=== PATIENT | female | born 1990 | race Caucasian/White ===

== ENCOUNTER → 2016-09-22 | Outpatient (CLI) | payer BC, OTHER ==
[~2016-09-22] MED LIST: DULO-24 PO; ETON1IMP2; IMT50 PO; LAMO200T38 PO; LISD40CA PO; PRENTAB26 PO; SYN125 PO
== END | disposition home or self-care (01) ==
LOC: C.RDSM 14:40
PROVIDERS: ATTEND Orthopaedic Surgery Sports Medicine
DX: M79.644 Pain in right finger(s) (principal); M79.645 Pain in left finger(s)

== ENCOUNTER 2020-12-02 11:59 | Inpatient (IN) ==
[2020-12-02 13:08] LABS: Appearance Urine Clear (Clear); Bacteria Urine Automated Negative (Negative); Bilirubin Urine Negative (Negative); Blood Urine Trace (Negative); Color Urine Yellow; Epithelial Cell Urine Auto >30 /lpf (0-5); Glucose Urine UA Negative (Negative); Ketones Urine Trace (Negative); Leukocyte Esterase Urine Trace (Negative); Nitrite Urine Negative (Negative); Protein Urine Negative (Negative); RBC Urine Automated 0-4 /hpf (0-4); Specific Gravity Urine 1.009 (1.000-1.030); Urobilinogen Urine Negative (Negative)
--- NOTE | 2020-12-02 13:08 | Emergency Department Note ---
Impression & Plan Suicidal thoughts, Mood disorder, High serum chloride, Marijuana use ED Provider Note NAME: KP CARRERA AGE: 29 SEX: F : 1990 ARRIVES VIA: Walk-In INFORMANT: Patient ED PROVIDER(S): Vishal Galarza DO CHIEF COMPLAINT: Depression HPI: Patient is a 29-year-old female with a past medical history of bipolar disorder and asthma who presents the ER for worsening depression. She has been crying fairly consistently. She has not been eating or drinking. She admits to impulses of wanting to kill her self. She has thoughts of wanting to crash her car off the road or slam her head against a desk. She does not feel like she can keep her self safe anymore. She has been trying to do this for the past several weeks. Patient denies any headache or change in vision. No chest pain or shortness of breath. No focal belly pain. No nausea vomiting or diarrhea. ROS: See above HPI for pertinent positives & negatives. A total of 10 systems reviewed and were otherwise negative. PAST MEDICAL HISTORY:See Below PAST SURGICAL HISTORY:See Below FAMILY HISTORY:See Below SOCIAL HISTORY:See Below HOME MEDICATIONS:See Below ALLERGIES:See Below VITALS:See Below PHYSICAL EXAMINATION: GENERAL: Sitting up in bed, alert, well appearing, well nourished, no distress, non-toxic EYE EXAM: normal conjunctiva. OROPHARYNX: no exudate, no erythema, lips, buccal mucosa, and tongue normal and mucous membranes are moist NECK: supple, no nuchal rigidity, no adenopathy, non-tender LUNGS: Clear to auscultation. Normal chest wall mechanics HEART: no murmurs, S1 normal and S2 normal ABDOMEN: abdomen soft, non-tender, normo-active bowel sounds, no masses, no rebound or guarding. BACK: Back is symmetrical on inspection and there is no deformity, no midline tenderness, no CVA tenderness. SKIN: no rashes and no bruising UPPER EXTREMITIES: upper extremities are grossly normal. LOWER EXTREMITIES: No pitting edema. NEURO EXAM: Normal sensorium, cranial nerves II-XII grossly intact, normal speech, no gross weakness of arms, no gross weakness of legs. MEDICAL DECISION MAKING: Patient is a 29-year-old female with a past medical history of asthma, hypothyroidism and bipolar who presents the ER brought in by canvas goods maker for impulsive suicidal thoughts. She feels uncomfortable staying at home and feels as though she cannot control these impulse and intrusive thoughts which include crashing her car. Patient would like to come in. Her canvas goods maker agrees that she is unsafe to be at home. Labs were obtained and showed no significant leukocytosis or anemia. BMP with slightly elevated chloride. LFTs bilirubin and TSH was unremarkable. UA was contaminated with multiple epithelial cells. Will not treat. was negative. Tox negative with the exception of marijuana. Covid was negative. Bed search was started. Patient was signed out to Dr. Tom to continue the bed search. Observation Status: Indication: Depression and SI Patient with no pertinent family history, was seen first at 1230 hrs and was necessary in order to determine medical stability and avoid unnecessary admission. Upon reevaluation, 6 hours of observation revealed that the patient should be signed out to Dr. Tom. Disposition date and time 12/02/2020 at 1800 Pt was signed out to Dr. Tom. Triage Nursing notes reviewed. Limited review of prior medical records performed Vital Signs: reviewed and remarkable for no significant abnormalities Differential diagnosis: Mood disorder, infection, hypoglycemia, electrolyte abnormalities, cardiac sources, intracerebral event, toxicologic, trauma, neurologic, as well as other pathologies. ER treatment provided: See below Diagnostics interpreted by me: ECG: none Laboratory studies: As stated above and show below. Imaging studies: See below Consultation(s): none Procedures: none Critical Care: None Past Med/Surg History Medical History (Updated 12/02/20 @ 18:05 by Vishal Galarza DO) Asthma Bipolar 1 disorder Hx of migraines Hypothyroid Surgical History Hx of breast reduction, elective Hx of wisdom tooth extraction Family History Other No significant family history Social History Smoking Status: Never smoker Hx Alcohol Use: Yes Hx Substance Use: No marital status: Single Current Living Situation: Alone current occupational status: unemployed Feels Safe at Home: Yes Allergies Allergies Allergy/AdvReac Type Severity Reaction Status Date / Time No Known Allergies Allergy Verified 12/02/20 16:02 Home Meds Home Medications Medication Instructions Recorded Confirmed dextroamphetamine-amphetamine 5 mg PO DAILY PRN 07/15/18 12/02/20 [Adderall] fludrocortisone 0.1 mg tablet 0.1 mg PO DAILY 04/12/19 12/02/20 levothyroxine 75 mcg capsule 75 mcg PO DAILY 04/12/19 12/02/20 tranexamic acid 600 mg PO UD 12/02/20 12/02/20 Results & Data (ED) Vital Signs Vital Signs - 24 hr 12/02/20 12:03 12/02/20 16:06 Temperature 36.6 C Temperature Source Temporal Artery Scan Pulse Rate 77 Pulse Rate [Left Finger] 66 Respiratory Rate 18 14 Respiratory Effort / Characteristics Non-Labored Respiratory Depth Normal Normal Blood Pressure 121/86 Blood Pressure [Right Arm] 122/80 Blood Pressure Mean 97 Blood Pressure Mean [Right Arm] 94 Blood Pressure Position [Right Arm] Sitting Pulse Oximetry 100 99 Oxygen Delivery Method Room Air Room Air Sepsis Recent Fever Within 48 Hours No Sepsis New/Unexplained Change in Mental Status No Sepsis Action Taken by Nursing No Action Required Laboratory Data Result diagrams: 12/02/20 13:03 12/02/20 13:03 Lab Results 12/02/20 12/02/20 12/02/20 Range/Units 12:48 12:48 12:48 WBC (4.8-10.8) K/uL RBC (4.2-5.4) M/uL Hgb (12.0-16.0) g/dL Hct (37-47) % MCV (80-100) fL MCH (25-34) pg MCHC (32-36) g/dL RDW Std Deviation (36.4-46.3) fL RDW Coeff of Ashley (11.5-14.5) % Plt Count (130-400) K/uL MPV (7.4-10.4) fL Immature Gran % (Auto) % Neut % (Auto) % Lymph % (Auto) % Bacon % (Auto) % Eos % (Auto) % Baso % (Auto) % Neut # (Auto) (1.4-6.5) K/uL Lymph # (Auto) (1.2-3.4) K/uL Bacon # (Auto) (0.11-0.59) K/uL Eos # (Auto) (0-0.5) K/uL Baso # (Auto) (0-0.2) K/uL Immature Gran # (Auto) (0.00-0.02) K/uL Sodium (136-145) mmol/L Potassium (3.5-5.1) mmol/L Chloride (98-107) mmol/L Carbon Dioxide (21-32) mmol/L Anion Gap (3-11) BUN (7-18) mg/dl Creatinine (0.6-1.2) mg/dl Est Cr Clr Drug Dosing ml/min Est GFR ( Amer) ml/min Est GFR (Non-Af Amer) ml/min BUN/Creatinine Ratio (10-20) Glucose (70-99) mg/dl Calcium (8.5-10.1) mg/dl Total Bilirubin (0.2-1) mg/dl AST (15-37) U/L ALT (12-78) U/L Alkaline Phosphatase (45-117) U/L Total Protein (6.4-8.2) gm/dl Albumin (3.4-5.0) gm/dl Globulin (2.5-4.0) gm/dl Albumin/Globulin Ratio (0.9-2) TSH (0.300-4.500) uIu/ml Urine Color Yellow Urine Appearance Clear (Clear) Urine pH 6.0 (4.5-7.5) Ur Specific Mobile 1.009 (1.000-1.030) Urine Protein Negative (Negative) Urine Glucose (UA) Negative (Negative) Urine Ketones Trace H (Negative) Urine Blood Trace H (Negative) Urine Nitrite Negative (Negative) Urine Bilirubin Negative (Negative) Urine Urobilinogen Negative (Negative) Ur Leukocyte Esterase Trace H (Negative) Urine WBC (Auto) 10-30 H (0-5) /hpf Urine RBC (Auto) 0-4 (0-4) /hpf U Hyaline Cast (Auto) 1-5 (0-5) /lpf U Epithel Cells (Auto) >30 H (0-5) /lpf Urine Bacteria (Auto) Negative (Negative) POC Ur Test NEG (NEG) Salicylates (2.8-20) mg/dl Urine Opiates Screen Neg (Neg) Ur Methadone, Qual Neg (Neg) Acetaminophen (10-30) ug/ml Urine Barbiturates Neg (Neg) Ur Phencyclidine (PCP) Neg (Neg) U Amphetamin/Meth Scrn Neg (Neg) MDMA (Ecstasy) Screen Neg (Neg) U Benzodiazepines Scrn Neg (Neg) Ur Cocaine Metabolite Neg (Neg) U Marijuana (THC) Screen Pos H (Neg) Ethyl Alcohol mg/dL (0-3) mg/dl COVID-19 Eval Order SARS-CoV-2 (PCR) (Negative) 12/02/20 12/02/20 12/02/20 Range/Units 13:03 13:03 13:03 WBC 5.98 (4.8-10.8) K/uL RBC 4.96 (4.2-5.4) M/uL Hgb 13.1 (12.0-16.0) g/dL Hct 40.3 (37-47) % MCV 81.3 (80-100) fL MCH 26.4 (25-34) pg MCHC 32.5 (32-36) g/dL RDW Std Deviation 46.6 H (36.4-46.3) fL RDW Coeff of Ashley 15.8 H (11.5-14.5) % Plt Count 180 (130-400) K/uL MPV 10.6 H (7.4-10.4) fL Immature Gran % (Auto) 0.2 % Neut % (Auto) 72.4 % Lymph % (Auto) 19.9 % Bacon % (Auto) 6.4 % Eos % (Auto) 0.8 % Baso % (Auto) 0.3 % Neut # (Auto) 4.33 (1.4-6.5) K/uL Lymph # (Auto) 1.19 L (1.2-3.4) K/uL Bacon # (Auto) 0.38 (0.11-0.59) K/uL Eos # (Auto) 0.05 (0-0.5) K/uL Baso # (Auto) 0.02 (0-0.2) K/uL Immature Gran # (Auto) 0.01 (0.00-0.02) K/uL Sodium 142 (136-145) mmol/L Potassium 4.0 (3.5-5.1) mmol/L Chloride 112 H (98-107) mmol/L Carbon Dioxide 23 (21-32) mmol/L Anion Gap 7.0 (3-11) BUN 11 (7-18) mg/dl Creatinine 0.61 (0.6-1.2) mg/dl Est Cr Clr Drug Dosing 113.5 ml/min Est GFR ( Amer) 143.0 ml/min Est GFR (Non-Af Amer) 123.4 ml/min BUN/Creatinine Ratio 18.7 (10-20) Glucose 86 (70-99) mg/dl Calcium 9.9 (8.5-10.1) mg/dl Total Bilirubin 0.4 (0.2-1) mg/dl AST 17 (15-37) U/L ALT 20 (12-78) U/L Alkaline Phosphatase 44 L (45-117) U/L Total Protein 7.1 (6.4-8.2) gm/dl Albumin 4.1 (3.4-5.0) gm/dl Globulin 3.0 (2.5-4.0) gm/dl Albumin/Globulin Ratio 1.4 (0.9-2) TSH 1.840 (0.300-4.500) uIu/ml Urine Color Urine Appearance (Clear) Urine pH (4.5-7.5) Ur Specific Mobile (1.000-1.030) Urine Protein (Negative) Urine Glucose (UA) (Negative) Urine Ketones (Negative) Urine Blood (Negative) Urine Nitrite (Negative) Urine Bilirubin (Negative) Urine Urobilinogen (Negative) Ur Leukocyte Esterase (Negative) Urine WBC (Auto) (0-5) /hpf Urine RBC (Auto) (0-4) /hpf U Hyaline Cast (Auto) (0-5) /lpf U Epithel Cells (Auto) (0-5) /lpf Urine Bacteria (Auto) (Negative) POC Ur Test (NEG) Salicylates < 1.7 L (2.8-20) mg/dl Urine Opiates Screen (Neg) Ur Methadone, Qual (Neg) Acetaminophen < 2 L (10-30) ug/ml Urine Barbiturates (Neg) Ur Phencyclidine (PCP) (Neg) U Amphetamin/Meth Scrn (Neg) MDMA (Ecstasy) Screen (Neg) U Benzodiazepines Scrn (Neg) Ur Cocaine Metabolite (Neg) U Marijuana (THC) Screen (Neg) Ethyl Alcohol mg/dL (0-3) mg/dl COVID-19 Eval Order SARS-CoV-2 (PCR) (Negative) 12/02/20 12/02/20 12/02/20 Range/Units 13:03 13:46 13:46 WBC (4.8-10.8) K/uL RBC (4.2-5.4) M/uL Hgb (12.0-16.0) g/dL Hct (37-47) % MCV (80-100) fL MCH (25-34) pg MCHC (32-36) g/dL RDW Std Deviation (36.4-46.3) fL RDW Coeff of Ashley (11.5-14.5) % Plt Count (130-400) K/uL MPV (7.4-10.4) fL Immature Gran % (Auto) % Neut % (Auto) % Lymph % (Auto) % Bacon % (Auto) % Eos % (Auto) % Baso % (Auto) % Neut # (Auto) (1.4-6.5) K/uL Lymph # (Auto) (1.2-3.4) K/uL Bacon # (Auto) (0.11-0.59) K/uL Eos # (Auto) (0-0.5) K/uL Baso # (Auto) (0-0.2) K/uL Immature Gran # (Auto) (0.00-0.02) K/uL Sodium (136-145) mmol/L Potassium (3.5-5.1) mmol/L Chloride (98-107) mmol/L Carbon Dioxide (21-32) mmol/L Anion Gap (3-11) BUN (7-18) mg/dl Creatinine (0.6-1.2) mg/dl Est Cr Clr Drug Dosing ml/min Est GFR ( Amer) ml/min Est GFR (Non-Af Amer) ml/min BUN/Creatinine Ratio (10-20) Glucose (70-99) mg/dl Calcium (8.5-10.1) mg/dl Total Bilirubin (0.2-1) mg/dl AST (15-37) U/L ALT (12-78) U/L Alkaline Phosphatase (45-117) U/L Total Protein (6.4-8.2) gm/dl Albumin (3.4-5.0) gm/dl Globulin (2.5-4.0) gm/dl Albumin/Globulin Ratio (0.9-2) TSH (0.300-4.500) uIu/ml Urine Color Urine Appearance (Clear) Urine pH (4.5-7.5) Ur Specific Mobile (1.000-1.030) Urine Protein (Negative) Urine Glucose (UA) (Negative) Urine Ketones (Negative) Urine Blood (Negative) Urine Nitrite (Negative) Urine Bilirubin (Negative) Urine Urobilinogen (Negative) Ur Leukocyte Esterase (Negative) Urine WBC (Auto) (0-5) /hpf Urine RBC (Auto) (0-4) /hpf U Hyaline Cast (Auto) (0-5) /lpf U Epithel Cells (Auto) (0-5) /lpf Urine Bacteria (Auto) (Negative) POC Ur Test (NEG) Salicylates (2.8-20) mg/dl Urine Opiates Screen (Neg) Ur Methadone, Qual (Neg) Acetaminophen (10-30) ug/ml Urine Barbiturates (Neg) Ur Phencyclidine (PCP) (Neg) U Amphetamin/Meth Scrn (Neg) MDMA (Ecstasy) Screen (Neg) U Benzodiazepines Scrn (Neg) Ur Cocaine Metabolite (Neg) U Marijuana (THC) Screen (Neg) Ethyl Alcohol mg/dL < 3.0 (0-3) mg/dl COVID-19 Eval Order Covid19 at [facility] SARS-CoV-2 (PCR) NEGATIVE (Negative) 12/02/20 Range/Units 13:49 WBC (4.8-10.8) K/uL RBC (4.2-5.4) M/uL Hgb (12.0-16.0) g/dL Hct (37-47) % MCV (80-100) fL MCH (25-34) pg MCHC (32-36) g/dL RDW Std Deviation (36.4-46.3) fL RDW Coeff of Ashley (11.5-14.5) % Plt Count (130-400) K/uL MPV (7.4-10.4) fL Immature Gran % (Auto) % Neut % (Auto) % Lymph % (Auto) % Bacon % (Auto) % Eos % (Auto) % Baso % (Auto) % Neut # (Auto) (1.4-6.5) K/uL Lymph # (Auto) (1.2-3.4) K/uL Bacon # (Auto) (0.11-0.59) K/uL Eos # (Auto) (0-0.5) K/uL Baso # (Auto) (0-0.2) K/uL Immature Gran # (Auto) (0.00-0.02) K/uL Sodium (136-145) mmol/L Potassium (3.5-5.1) mmol/L Chloride (98-107) mmol/L Carbon Dioxide (21-32) mmol/L Anion Gap (3-11) BUN (7-18) mg/dl Creatinine (0.6-1.2) mg/dl Est Cr Clr Drug Dosing ml/min Est GFR ( Amer) ml/min Est GFR (Non-Af Amer) ml/min BUN/Creatinine Ratio (10-20) Glucose (70-99) mg/dl Calcium (8.5-10.1) mg/dl Total Bilirubin (0.2-1) mg/dl AST (15-37) U/L ALT (12-78) U/L Alkaline Phosphatase (45-117) U/L Total Protein (6.4-8.2) gm/dl Albumin (3.4-5.0) gm/dl Globulin (2.5-4.0) gm/dl Albumin/Globulin Ratio (0.9-2) TSH (0.300-4.500) uIu/ml Urine Color Urine Appearance (Clear) Urine pH (4.5-7.5) Ur Specific Mobile (1.000-1.030) Urine Protein (Negative) Urine Glucose (UA) (Negative) Urine Ketones (Negative) Urine Blood (Negative) Urine Nitrite (Negative) Urine Bilirubin (Negative) Urine Urobilinogen (Negative) Ur Leukocyte Esterase (Negative) Urine WBC (Auto) (0-5) /hpf Urine RBC (Auto) (0-4) /hpf U Hyaline Cast (Auto) (0-5) /lpf U Epithel Cells (Auto) (0-5) /lpf Urine Bacteria (Auto) (Negative) POC Ur Test (NEG) Salicylates (2.8-20) mg/dl Urine Opiates Screen (Neg) Ur Methadone, Qual (Neg) Acetaminophen (10-30) ug/ml Urine Barbiturates (Neg) Ur Phencyclidine (PCP) (Neg) U Amphetamin/Meth Scrn (Neg) MDMA (Ecstasy) Screen (Neg) U Benzodiazepines Scrn (Neg) Ur Cocaine Metabolite (Neg) U Marijuana (THC) Screen (Neg) Ethyl Alcohol mg/dL (0-3) mg/dl COVID-19 Eval Order Not Reportable SARS-CoV-2 (PCR) (Negative) Discharge Plan Visit Data Chief Complaint: Mental Health Evaluation Stated Complaint: MENTAL HEALTH EVAL ED Provider: Nazario Tom Discharge Problem: Suicidal thoughts, Mood disorder, High serum chloride, Marijuana use Forms Stand Alone Forms: My [facility], Suicide Prevention Resources Prescriptions Prescriptions: No Action levothyroxine 75 mcg capsule 75 mcg PO DAILY RF: 0 fludrocortisone 0.1 mg tablet 0.1 mg PO DAILY RF: 0 dextroamphetamine-amphetamine [Adderall] 5 mg Tablet 5 mg PO DAILY PRN (Reason: focus) RF: 0 tranexamic acid 650 mg tablet 600 mg PO UD RF: 0
[2020-12-02 13:14] LABS: Basophils # (auto) 0.02 K/uL (0-0.2); Basophils % (auto) 0.3 %; Eosinophils # (auto) 0.05 K/uL (0-0.5); Eosinophils % (auto) 0.8 %; Hematocrit (blood only) 40.3 % (37-47); Hemoglobin 13.1 g/dL (12.0-16.0); Immature Granulocytes # (auto) 0.01 K/uL (0.00-0.02); Immature Granulocytes % (auto) 0.2 %; Lymphocytes # (auto) 1.19 K/uL (1.2-3.4); Lymphocytes % (auto) 19.9 %; Mean Corpuscular Hemoglobin 26.4 pg (25-34); Mean Corpuscular Hgb Conc 32.5 g/dL (32-36); Mean Corpuscular Volume 81.3 fL (80-100); Mean Platelet Volume 10.6 fL (7.4-10.4); Monocytes # (auto) 0.38 K/uL (0.11-0.59); Monocytes % (auto) 6.4 %; Neutrophils # (auto) 4.33 K/uL (1.4-6.5); Neutrophils % (auto) 72.4 %; Platelet Count 180 K/uL (130-400); RDW Coefficient of Variation 15.8 % (11.5-14.5); RDW Standard Deviation 46.6 fL (36.4-46.3); Red Blood Count 4.96 M/uL (4.2-5.4); White Blood Count 5.98 K/uL (4.8-10.8)
[2020-12-02 13:34] LABS: Amphetamines+Metham, Urine Neg (Neg); Barbiturates, Urine Neg (Neg); Benzodiazepine, Urine Neg (Neg); Cocaine, Urine Neg (Neg); MDMA (Ecstacy), Urine Neg (Neg); Methadone, Urine Neg (Neg); Opiate, Urine Neg (Neg); Phencyclidine, Urine Neg (Neg)
[2020-12-02 13:37] LABS: Albumin Level 4.1 gm/dl (3.4-5.0); BUN Creatinine Ratio 18.7 (10-20); Calcium 9.9 mg/dl (8.5-10.1); Creatinine Clr Calc Pharmacy 113.5 ml/min; Est GFR (Non-African American) 123.4 ml/min
[2020-12-02 13:48] LABS: Albumin Globulin Ratio 1.4 (0.9-2); Bilirubin,Total 0.4 mg/dl (0.2-1); Thyroid Stimulating Hormone 1.84 uIu/ml (0.300-4.500); Total Protein 7.1 gm/dl (6.4-8.2)
[2020-12-02 13:52] LABS: Acetaminophen < 2 ug/ml (10-30)
[2020-12-02 13:53] LABS: Salicylate < 1.7 mg/dl (2.8-20)
--- NOTE | 2020-12-02 18:02 | Emergency Department Note ---
ED Visit Note Patient signed out to me by Dr. Galarza after being medically cleared for bed search for inpatient treatment. History of underlying bipolar reportedly worsening now with impulsive thoughts to want to harm her self or wreck her car. Bed search is in progress. Patient is voluntary for inpatient care. Patient rested comfortably here. She did take her evening supplements and her daily prescription medicines were ordered. Bed search was suspended due to lack of bed this evening. Signed out to Dr. Yuan pending bed search restart in the morning. .
[2020-12-02] MEDS ORDERED: DEXTROAMPHETAMINE AMPHETAMINE PO PRN (23:22)
--- NOTE | 2020-12-03 01:34 | Emergency Department Note ---
ED Visit Note ED Physician Sign Out Note: 29 yr old female with history of bipolar disorder who arrived earlier with suicidal ideation. Here on [address] voluntary but no beds available at this time and bed search suspended. Signed out to me by Dr Tom pending placement. Patient sleeping in no distress on evaluation. No issues throughout the night. Signed out to Dr Damon pending further attempts at placement. Marco Yuan MD
--- NOTE | 2020-12-03 07:19 | Emergency Department Note ---
ED Visit Note I did receive signout from Dr. Yuan. The patient is currently a voluntary 201 due to concern for suicidal ideation. Patient is medically cleared. Patient was accepted to [facility] [address] and subsequently admitted. .
[2020-12-03] MEDS ORDERED: FLUDROCORTISONE ACETATE 0.1 MG TAB PO SCH (09:00)
[2020-12-03] MEDS ORDERED: LEVOTHYROXINE SODIUM 75 MCG TABLET PO SCH (09:30)
[2020-12-03] MEDS ORDERED: SODIUM CHLORIDE 0.65% NA SOLN 45 ML (OCEAN) PRN (09:51)
[2020-12-03] MEDS ORDERED: hydrOXYzine HCl 25 MG TAB PO PRN (09:51)
[2020-12-03] MEDS ORDERED: ACETAMINOPHEN 325 MG TAB PO PRN (09:51)
[2020-12-03] MEDS ORDERED: MAGNESIUM HYDROXIDE SUSP 30 ML UDC PO PRN (09:51)
[2020-12-03] MEDS ORDERED: ALUMINUM/MAGNESIUM SUSP 30 ML UDC PO PRN (09:51)
[2020-12-03] MEDS ORDERED: BISMUTH SUBSALICYLATE LIQD 236 ML PO PRN (09:51)
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
[2020-12-03] MEDS: CHOLECALCIFEROL 1,000 UNITS 25 MCG TAB PO SCH (20:54)
[2020-12-03] MEDS ORDERED: LION S MANE PO SCH (21:00)
[2020-12-03] MEDS ORDERED: TURMERIC TURMERIC EXT PEPPER PO SCH (21:00)
[2020-12-03] MEDS ORDERED: HTP 100 MG PO SCH (21:00)
[2020-12-03] MEDS ORDERED: NON-FORMULARY MEDICATION (Cholecalciferol (Vitamin D3) [Vitamin D3] 25 mcg (1,000 unit) Ta PO SCH (21:00)
[2020-12-03] MEDS ORDERED: CBD PO SCH (21:00)
[2020-12-03] MEDS: hydrOXYzine HCl 25 MG TAB PO PRN (22:07)
[2020-12-04] MEDS: LEVOTHYROXINE SODIUM 75 MCG TABLET PO SCH (07:50)
[2020-12-04] MEDS: ESCITALOPRAM OXALATE 10 MG TAB PO SCH (09:45)
[2020-12-04] MEDS: FLUDROCORTISONE ACETATE 0.1 MG TAB PO SCH (09:46)
[2020-12-04] MEDS: TRANEXAMIC ACID PO SCH ×4 (09:49→22:25)
--- NOTE | 2020-12-04 12:36 | Psychiatric Progress Note ---
Date of Service December 04, 2020 Impression / Recommendations Impression 21-year-old female who presented following episodes of suicidal ideation. (1) Major depressive disorder with current active episode: The patient was admitted to the [facility] ([facility]) on q15 min checks (behavioral with suicide precautions) for safety. The patient will participate in group, recreational, and milieu therapies and will be offered additional individual and family sessions as clinically appropriate. At this time MDD is leading diagnosis. Elastic Yarn Twister spoke extensively with patient about her past symptoms and does not believe bipolar to be accurate at this time. 12/04/2020atient took first dose of Lexapro without incident. We will continue on 10 mg p.o. every morning for now. 12/03/2020 patient will be started on Lexapro 10 mg p.o. every morning (2) Marijuana use: The patient's use history suggests problematic substance use. Brief intervention was offered and accepted. Intervention was greater than 5 min in length and included assessing readiness to quit, advice on how to reduce or abstain, and to set a specific goal for this hospitalization. oyster worker will also assist in anticipating barriers to sobriety and in problem-solving for solutions to those problems while arranging for referral to appropriate treatment. The patient is in precontemplation stage with regards to transtheoretical model of change. The patient is advised to decrease consumption due to depressant effects and risk of interaction with prescription medications. The patient agreed to consider decreasing use and will be provided with recovery materials to continue to educate self on how to cope with their condition without abusing substances. Risk Factors Assessment Do You Have Access To A Gun?: No Protective Factors Assessment Employed: No Interval History Chief Complaint "I am still feeling pretty down". Review of Systems Sleep Information Total Hours of Sleep: 6.5 Meal Information Percent Meal Consumed - Breakfast: 0 Percent Meal Consumed - Lunch: 75 Percent Meal Consumed - Dinner: 75 Subjective Subjective Patient was seen & assessed and interval progress reviewed with treatment team nursing and social work Patient reports feeling low mood. Endorses poor appetite. States her sleep is broken up and she required a sleep aid (hydroxyzine). Patient reports feeling groggy from this. Did attend group this morning and participated appropriately. No side effects reported from Lexapro administration this morning. Physical Exam Psychiatric Orientation: alert and oriented x 3 Apperance: appropriately dressed Eye Contact: + fair eye contact Motor Behavior: no abnormal motor movements Speech: normal rate/rhythm/volume of speech Affect: + depressed affect Mood: + depressed mood and + anxious mood Thought Process: goal directed thought process Thought Content: + preoccupation and + cognitive distortions Suicidal Thoughts: denies suicidal intent; + reports suicidal thoughts and + reports suicidal plan Homicidal Thoughts: denies homicidal thoughts Hallucinations: no auditory hallucinations Cognition: recent memory grossly intact Estimated Intelligence: average estimated intelligence Insight: + fair insight Judgement: + fair judgement Vital Signs (Past 24 Hours) Last Vital Signs Temp 36.6 C 12/04/20 06:00 Pulse 84 12/04/20 06:43 Resp 16 12/04/20 06:00 BP 95/67 L 12/04/20 06:43 Pulse Ox 99 12/03/20 06:23 Results & Data ([facility]) Current Inpatient Medications Current Inpatient Medications: Current Inpatient Medications Acetaminophen (Acetaminophen 325 Mg Tab) 650 mg PO Q4H PRN PRN Reason: Headache or Minor Fever Stop: 01/02/21 09:50 Al Hydrox/Mg Hydrox/Simethicone (Aluminum/Magnesium Susp 30 Ml Udc) 30 ml PO Q4H PRN PRN Reason: GI Upset Stop: 01/02/21 09:50 Bismuth Subsalicylate (Bismuth Subsalicylate Liqd 236 Ml) 15 ml PO PRN PRN PRN Reason: Loose Stool Stop: 01/02/21 09:50 Escitalopram Oxalate (Escitalopram Oxalate 10 Mg Tab) 10 mg PO QAM GABBIE Stop: 01/03/21 08:59 Last Admin: 12/04/20 09:45 Dose: 10 mg Documented by: Fludrocortisone Acetate (Fludrocortisone Acetate 0.1 Mg Tab) 0.1 mg PO QAM GABBIE Stop: 01/03/21 08:59 Last Admin: 12/04/20 09:46 Dose: 0.1 mg Documented by: Hydroxyzine HCl (Hydroxyzine Hcl 25 Mg Tab) 50 mg PO HSZ PRN PRN Reason: Insomnia Stop: 01/02/21 09:50 Last Admin: 12/03/20 22:07 Dose: 50 mg Documented by: Hydroxyzine HCl (Hydroxyzine Hcl 25 Mg Tab) 25 mg PO Q4H PRN PRN Reason: Anxiety Stop: 01/02/21 09:50 Levothyroxine Sodium (Levothyroxine Sodium 75 Mcg Tablet) 75 mcg PO DAILYBB GABBEI Stop: 01/03/21 07:59 Last Admin: 12/04/20 07:50 Dose: 75 mcg Documented by: Magnesium Hydroxide (Magnesium Hydroxide Susp 30 Ml Udc) 30 ml PO DAILY PRN PRN Reason: Constipation Stop: 01/02/21 09:50 Tranexamic Acid - (Patient's Own Med) 2 ea PO TID GABBIE Stop: 01/03/21 08:59 Last Admin: 12/04/20 09:49 Dose: Not Given Documented by: Sodium Chloride (Sodium Chloride 0.65% Na Soln 45 Ml ([place])) 1 - 2 sprays NA PRN PRN PRN Reason: Nasal Dryness/Congestion Stop: 01/02/21 09:50 Vitamin D (Cholecalciferol 1,000 Units 25 Mcg Tab) 1,000 units PO HS GABBIE Stop: 01/02/21 21:59 Last Admin: 12/03/20 20:54 Dose: 1,000 units Documented by: Mental Health & Subst Abuse Tx Psychiatrist Name of Psychiatrist: Luan Chapin Psychiatrist's Psychiatric Appointment Comment: [phone] [place] [address] Therapist Name of Therapist: Kamron Campa Therapist's Therapy Appointment Comment: [phone] [facility], [place] [address] Fringe Weaver Name of Fringe Weaver: DISHA Hernandez Phone Number for Fringe Weaver: [phone] Case Management Appointment Comment: [address] [place] [facility] [place] [address] Post Discharge Appointments Primary Care Physician Name Of Family Doctor: Lavell Singer Primary Care Provider Appointment Comment: [place] [address] Contact Information Discharge Discharge Address: [address] [place] [address]
[2020-12-04] MEDS: CHOLECALCIFEROL 1,000 UNITS 25 MCG TAB PO SCH (21:14)
[2020-12-04] MEDS: hydrOXYzine HCl 25 MG TAB PO PRN (21:20)
[2020-12-05 07:07] LABS: Marijuana Quant, GCMS Urine 117 ng/mL (<5)
[2020-12-05] MEDS: LEVOTHYROXINE SODIUM 75 MCG TABLET PO SCH (08:09)
[2020-12-05] MEDS: TRANEXAMIC ACID PO SCH ×3 (08:33→21:01)
[2020-12-05] MEDS: ESCITALOPRAM OXALATE 10 MG TAB PO SCH (08:34)
[2020-12-05] MEDS: FLUDROCORTISONE ACETATE 0.1 MG TAB PO SCH (08:34)
--- NOTE | 2020-12-05 14:40 | Psychiatric Progress Note ---
Date of Service December 05, 2020 Impression / Recommendations Impression 21-year-old female who presented following episodes of suicidal ideation. (1) Major depressive disorder with current active episode: The patient was admitted to the [facility] ([facility]) on q15 min checks (behavioral with suicide precautions) for safety. The patient will participate in group, recreational, and milieu therapies and will be offered additional individual and family sessions as clinically appropriate. At this time MDD is leading diagnosis. Coal Conveyor Operator spoke extensively with patient about her past symptoms and does not believe bipolar to be accurate at this time. 12/05/2020-- will increase dose of Lexapro 20mg 12/04/2020atient took first dose of Lexapro without incident. We will continue on 10 mg p.o. every morning for now. 12/03/2020 patient will be started on Lexapro 10 mg p.o. every morning (2) Marijuana use: The patient's use history suggests problematic substance use. Brief int ervention was offered and accepted. Intervention was greater than 5 min in length and included assessing readiness to quit, advice on how to reduce or abstain, and to set a specific goal for this hospitalization. soaking tank worker will also assist in anticipating barriers to sobriety and in problem-solving for solutions to those problems while arranging for referral to appropriate treatment. The patient is in precontemplation stage with regards to transtheoretical model of change. The patient is advised to decrease consumption due to depressant effects and risk of interaction with prescription medications. The patient agreed to consider decreasing use and will be provided with recovery materials to continue to educate self on how to cope with their condition without abusing substances. Risk Factors Assessment Do You Have Access To A Gun?: No Protective Factors Assessment Employed: No Interval History Chief Complaint "I'm feeling fine, thank you". Review of Systems Sleep Information Total Hours of Sleep: 6.5 Meal Information Percent Meal Consumed - Breakfast: 75 Percent Meal Consumed - Lunch: 0 Percent Meal Consumed - Dinner: 80 Subjective Subjective Patient was seen & assessed and interval progress reviewed with treatment team nursing and social work Patient reports decent sleep last night with use of hydroxyzine. Acknowledges being somewhat drowsy today. Denies any other adverse effects of the medications. Calm and pleasant on evaluation, interacting appropriately with peers. attending most groups. Regarding her mood, patient states that she is improving. Denies any suicidal thoughts today but states they are fleeting. No manic symptoms observed or reported. Physical Exam Psychiatric Orientation: alert and oriented x 3 Apperance: appropriately dressed Eye Contact: + fair eye contact Motor Behavior: no abnormal motor movements Speech: normal rate/rhythm/volume of speech Affect: + depressed affect Mood: + depressed mood and + anxious mood Thought Process: goal directed thought process Thought Content: + preoccupation and + cognitive distortions Suicidal Thoughts: denies suicidal intent; + reports suicidal thoughts and + reports suicidal plan Homicidal Thoughts: denies homicidal thoughts Hallucinations: no auditory hallucinations Cognition: recent memory grossly intact Estimated Intelligence: average estimated intelligence Insight: + fair insight Judgement: + fair judgement Vital Signs (Past 24 Hours) Last Vital Signs Temp 36.5 C 12/05/20 06:00 Pulse 90 12/05/20 06:28 Resp 16 12/05/20 06:00 BP 108/75 12/05/20 06:28 Pulse Ox 99 12/03/20 06:23 Results & Data ([facility] [[email or web address] Laboratory Results Laboratory Results - last 24 hr 12/02/20 12:48 U Marijuana THC Carboxy 117 H Drug Screen Comment SEE NOTE Current Inpatient Medications Current Inpatient Medications: Current Inpatient Medications Acetaminophen (Acetaminophen 325 Mg Tab) 650 mg PO Q4H PRN PRN Reason: Headache or Minor Fever Stop: 01/02/21 09:50 Al Hydrox/Mg Hydrox/Simethicone (Aluminum/Magnesium Susp 30 Ml Udc) 30 ml PO Q4H PRN PRN Reason: GI Upset Stop: 01/02/21 09:50 Bismuth Subsalicylate (Bismuth Subsalicylate Liqd 236 Ml) 15 ml PO PRN PRN PRN Reason: Loose Stool Stop: 01/02/21 09:50 Escitalopram Oxalate (Escitalopram Oxalate 20 Mg Tab) 20 mg PO QAM GABBIE Stop: 01/05/21 08:59 Fludrocortisone Acetate (Fludrocortisone Acetate 0.1 Mg Tab) 0.1 mg PO QAM GABBIE Stop: 01/03/21 08:59 Last Admin: 12/05/20 08:34 Dose: 0.1 mg Documented by: Hydroxyzine HCl (Hydroxyzine Hcl 25 Mg Tab) 50 mg PO HSZ PRN PRN Reason: Insomnia Stop: 01/02/21 09:50 Last Admin: 12/04/20 21:20 Dose: 50 mg Documented by: Hydroxyzine HCl (Hydroxyzine Hcl 25 Mg Tab) 25 mg PO Q4H PRN PRN Reason: Anxiety Stop: 01/02/21 09:50 Levothyroxine Sodium (Levothyroxine Sodium 75 Mcg Tablet) 75 mcg PO DAILYBB GABBIE Stop: 01/03/21 07:59 Last Admin: 12/05/20 08:09 Dose: 75 mcg Documented by: Magnesium Hydroxide (Magnesium Hydroxide Susp 30 Ml Udc) 30 ml PO DAILY PRN PRN Reason: Constipation Stop: 01/02/21 09:50 Tranexamic Acid - (Patient's Own Med) 2 ea PO TID GABBIE Stop: 01/03/21 08:59 Last Admin: 12/05/20 08:33 Dose: 2 ea Documented by: Sodium Chloride (Sodium Chloride 0.65% Na Soln 45 Ml ([place])) 1 - 2 sprays NA PRN PRN PRN Reason: Nasal Dryness/Congestion Stop: 01/02/21 09:50 Vitamin D (Cholecalciferol 1,000 Units 25 Mcg Tab) 1,000 units PO HS GABBIE Stop: 01/02/21 21:59 Last Admin: 12/04/20 21:14 Dose: 1,000 units Documented by: Mental Health & Subst Abuse Tx Psychiatrist Name of Psychiatrist: Tish Chapin Psychiatrist's Date of Appointment with Psychiatrist: 12/29/20 Time of Appointment with Psychiatrist: 10:40 a.m. Psychiatric Appointment Comment: [address] [place], [place] [address] Therapist Name of Therapist: Tish Campa Therapist's Date of Therapist Appointment: 12/17/20 Time of Therapist Appointment: 2:00 p.m. Therapy Appointment Comment: [address] [place], [place] [address] Garbage Person Name of Garbage Person: ERASTO Dewey Phone Number for Garbage Person: [phone] Date of Appointment with Garbage Person: 12/09/20 Time of Appointment with Garbage Person: 1:00 p.m. Case Management Appointment Comment: [address] [place] [address] Post Discharge Appointments Primary Care Physician Name Of Family Doctor: Lavell Singer Primary Care Date of Appointment with PCP: 12/12/20 Time of Appointment with PCP: 9:45 a.m. Provider Appointment Comment: [address]red López, [place] [address] Contact Information Discharge Discharge Address: [address] [place] [address], [place] [address]
[2020-12-05] MEDS: CHOLECALCIFEROL 1,000 UNITS 25 MCG TAB PO SCH (21:00)
[2020-12-05] MEDS: hydrOXYzine HCl 25 MG TAB PO PRN (21:55)
[2020-12-06] MEDS: LEVOTHYROXINE SODIUM 75 MCG TABLET PO SCH (07:39)
[2020-12-06] MEDS: TRANEXAMIC ACID PO SCH ×3 (08:20→20:55)
[2020-12-06] MEDS: ESCITALOPRAM OXALATE 20 MG TAB PO SCH (08:20)
[2020-12-06] MEDS: FLUDROCORTISONE ACETATE 0.1 MG TAB PO SCH (08:20)
--- NOTE | 2020-12-06 16:48 | Psychiatric Progress Note ---
Date of Service December 06, 2020 Impression / Recommendations Impression 21-year-old female who presented following episodes of suicidal ideation. (1) Major depressive disorder with current active episode: The patient was admitted to the [facility] ([facility] mental [facility] unit) on q15 min checks (behavioral with suicide precautions) for safety. The patient will participate in group, recreational, and milieu therapies and will be offered additional individual and family sessions as clinically appropriate. At this time MDD is leading diagnosis. Amusement Park Ride Mechanic spoke extensively with patient about her past symptoms and does not believe bipolar to be accurate at this time. 12/06/20- Family meeting went well, denies side effects from increased lexapro - will monitor affect given past suicidal houghts with intent - patient optimistic about discharge tomorrow 12/05/2020-- will increase dose of Lexapro 20mg 12/04/2020atient took first dose of Lexapro without incident. We will continue on 10 mg p.o. every morning for now. 12/03/2020 patient will be started on Lexapro 10 mg p.o. every morning (2) Marijuana use: The patient's use history suggests problematic substance use. Brief intervention was offered and accepted. Intervention was greater than 5 min in length and included assessing readiness to quit, advice on how to reduce or abstain, and to set a specific goal for this hospitalization. duralumin metalworker will also assist in anticipating barriers to sobriety and in problem-solving for solutions to those problems while arranging for referral to appropriate treatment. The patient is in precontemplation stage with regards to transtheoretical model of change. The patient is advised to decrease consumption due to depressant effects and risk of interaction with prescription medications. The patient agreed to consider decreasing use and will be provided with recovery materials to continue to educate self on how to cope with their condition without abusing substances. Risk Factors Assessment Do You Have Access To A Gun?: No Protective Factors Assessment Employed: No Interval History Chief Complaint "[I think taking care of my grandmother was too much for me and overwhelmed me"]". Review of Systems Sleep Information Total Hours of Sleep: 6.5 Meal Information Percent Meal Consumed - Breakfast: 75 Percent Meal Consumed - Lunch: 50 Percent Meal Consumed - Dinner: 100 Subjective Subjective Patient was seen & assessed and interval progress reviewed with nursing and social work. Patient reports being overwhelmed by taking care of her grandmother, grandmother is demented and is 90 years old. She feels a part of her issue was the care providers kept asking her to do more and she "felt capable of doing". She has a meeting with the care providers as well as her mother and her on discharge and there would be a better clear understanding of everybody's role. Patient feels stable at this time denies any thoughts of suicide denies any worsening depression feels optimistic about the future. Physical Exam Psychiatric Orientation: alert and oriented x 3 Apperance: appropriately dressed Eye Contact: + fair eye contact Motor Behavior: no abnormal motor movements Speech: normal rate/rhythm/volume of speech Affect: + depressed affect Mood: + anxious mood; no depressed mood Thought Process: goal directed thought process and linear/logical thought process Thought Content: + preoccupation; no cognitive distortions Suicidal Thoughts: denies suicidal thoughts, denies suicidal plan and denies suicidal intent Homicidal Thoughts: denies homicidal thoughts Hallucinations: no auditory hallucinations, no visual hallucinations and no tactile hallucinations Cognition: recent memory grossly intact Estimated Intelligence: average estimated intelligence Insight: + fair insight Judgement: + fair judgement Improving judhgement Vital Signs (Past 24 Hours) Last Vital Signs Temp 36.5 C 12/06/20 06:32 Pulse 80 12/06/20 06:33 Resp 16 12/06/20 06:32 BP 112/79 12/06/20 06:33 Pulse Ox 99 12/03/20 06:23 Results & Data ([facility] [[email or web address] Current Inpatient Medications Current Inpatient Medications: Current Inpatient Medications Acetaminophen (Acetaminophen 325 Mg Tab) 650 mg PO Q4H PRN PRN Reason: Headache or Minor Fever Stop: 01/02/21 09:50 Al Hydrox/Mg Hydrox/Simethicone (Aluminum/Magnesium Susp 30 Ml Udc) 30 ml PO Q4H PRN PRN Reason: GI Upset Stop: 01/02/21 09:50 Bismuth Subsalicylate (Bismuth Subsalicylate Liqd 236 Ml) 15 ml PO PRN PRN PRN Reason: Loose Stool Stop: 01/02/21 09:50 Escitalopram Oxalate (Escitalopram Oxalate 20 Mg Tab) 20 mg PO QAM GABBIE Stop: 01/05/21 08:59 Last Admin: 12/06/20 08:20 Dose: 20 mg Documented by: Fludrocortisone Acetate (Fludrocortisone Acetate 0.1 Mg Tab) 0.1 mg PO QAM GABBIE Stop: 01/03/21 08:59 Last Admin: 12/06/20 08:20 Dose: 0.1 mg Documented by: Hydroxyzine HCl (Hydroxyzine Hcl 25 Mg Tab) 50 mg PO HSZ PRN PRN Reason: Insomnia Stop: 01/02/21 09:50 Last Admin: 12/05/20 21:55 Dose: 50 mg Documented by: Hydroxyzine HCl (Hydroxyzine Hcl 25 Mg Tab) 25 mg PO Q4H PRN PRN Reason: Anxiety Stop: 01/02/21 09:50 Levothyroxine Sodium (Levothyroxine Sodium 75 Mcg Tablet) 75 mcg PO DAILYBB GABBIE Stop: 01/03/21 07:59 Last Admin: 12/06/20 07:39 Dose: 75 mcg Documented by: Magnesium Hydroxide (Magnesium Hydroxide Susp 30 Ml Udc) 30 ml PO DAILY PRN PRN Reason: Constipation Stop: 01/02/21 09:50 Tranexamic Acid - (Patient's Own Med) 2 ea PO TID GABBIE Stop: 01/03/21 08:59 Last Admin: 12/06/20 14:27 Dose: 2 ea Documented by: Sodium Chloride (Sodium Chloride 0.65% Na Soln 45 Ml ([place])) 1 - 2 sprays NA PRN PRN PRN Reason: Nasal Dryness/Congestion Stop: 01/02/21 09:50 Vitamin D (Cholecalciferol 1,000 Units 25 Mcg Tab) 1,000 units PO HS GABBIE Stop: 01/02/21 21:59 Last Admin: 12/05/20 21:00 Dose: 1,000 units Documented by: Mental Health & Subst Abuse Tx Psychiatrist Name of Psychiatrist: Tish Chapin Psychiatrist's Date of Appointment with Psychiatrist: 12/29/20 Time of Appointment with Psychiatrist: 10:40 a.m. Psychiatric Appointment Comment: [place] [address] Therapist Name of Therapist: Tish Campa Therapist's Date of Therapist Appointment: 12/17/20 Time of Therapist Appointment: 2:00 p.m. Therapy Appointment Comment: [place] [address] Hard Rock Miner Name of Hard Rock Miner: ERASTO Dewey Phone Number for Hard Rock Miner: [phone] Date of Appointment with Hard Rock Miner: 12/09/20 Time of Appointment with Hard Rock Miner: 1:00 p.m. Case Management Appointment Comment: [address] [place] [address] Post Discharge Appointments Primary Care Physician Name Of Family Doctor: Lavell Singer Primary Care Date of Appointment with PCP: 12/12/20 Time of Appointment with PCP: 9:45 a.m. Provider Appointment Comment: [address], [place] [address] Contact Information Discharge Discharge Address: [address] [place] [address]
[2020-12-06] MEDS: CHOLECALCIFEROL 1,000 UNITS 25 MCG TAB PO SCH (20:54)
[2020-12-06] MEDS: hydrOXYzine HCl 25 MG TAB PO PRN (22:19)
[2020-12-07] MEDS: LEVOTHYROXINE SODIUM 75 MCG TABLET PO SCH (07:46)
[2020-12-07] MEDS: TRANEXAMIC ACID PO SCH (08:47)
[2020-12-07] MEDS: FLUDROCORTISONE ACETATE 0.1 MG TAB PO SCH (08:47)
[2020-12-07] MEDS: ESCITALOPRAM OXALATE 20 MG TAB PO SCH (08:47)
--- NOTE | 2020-12-07 10:43 | Discharge Summary ---
Date of Service December 07, 2020 History of Present Illness This is a 21-year-old female who was admitted with suicidal ideation in the context of multiple psychosocial stressors including caring for her 90 year old grandmother please see for details admission H & P Despite her bipolar disorder diagnosis, patient denying any overt manic symptoms recently or in the past. She acknowledged short periods of time where she will get decreased amounts of sleep however these periods of time are less than 2 days in duration prior to admission At the time of admission she denied auditory or visual hallucinations. She denies any paranoia or delusions. Patient does report that she is potentially can undergo testing for autism as she feels that she is on the spectrum. Patient states symptoms of difficulty making eye contact, and social awkwardness although none of this was observed during the evaluation. Patient also identifies as pansexual, and has had relationships with females in the past. States that she feels her gender does not fit her but does not describe herself as transgender. Currently to a man. Physical Exam Psychiatric Orientation: alert and oriented x 3 Apperance: appropriately dressed Eye Contact: + fair eye contact Motor Behavior: no abnormal motor movements Speech: normal rate/rhythm/volume of speech Affect: + depressed affect Mood: + anxious mood; no depressed mood Thought Process: goal directed thought process and linear/logical thought process Thought Content: no preoccupation and no cognitive distortions Suicidal Thoughts: denies suicidal thoughts, denies suicidal plan and denies suicidal intent Homicidal Thoughts: denies homicidal thoughts Hallucinations: no auditory hallucinations, no visual hallucinations and no tactile hallucinations Cognition: recent memory grossly intact Estimated Intelligence: average estimated intelligence Insight: + fair insight Judgement: + fair judgement Vital Signs (Past 24 Hours) Last Vital Signs Temp 36.5 C 12/07/20 09:55 Pulse 75 12/07/20 09:55 Resp 16 12/07/20 09:55 BP 108/75 12/07/20 09:55 Pulse Ox 99 12/07/20 09:55 Principal Diagnosis Mood disorder unspecified. major depression recurrent severe Psychiatric Data Please see daily summary and day of discharge assessment below. Day of Discharge Assessment Please see daily summary in short safety was maintained and this patient was cooperative with care medication were continued when maintained patient continued to tolerate this well patient was started on Lexapro and she did well on the treatment family session was held and a safety plan was completed prior to discharge today the patient continues to voice readiness for discharge they note improvement in mood and denies thoughts to harm of harming herself or ot hers she is organized and her thought process has improved from admission at this time there is no evidence of psychosis patient agrees to continue to take the medication as prescribed and she is stable for outpatient care Transition of Care Transition Of Care Record: was reviewed with the patient Advance Directives Advance Directives Information Provided: Yes Advance Directives: No Mental Health Advance Directive: No Advance Directives on File: No Living Will: No Power of Health Education Coordinator: No Advance Directives Reason:: Declines as Mental Health Visit. Risk Factors Assessment Do You Have Access To A Gun?: No Protective Factors Assessment : Yes Employed: No Stable Relationships: Yes Supportive Family: Yes Tobacco Cessation at Discharge Tobacco Cessation Medication Prescribed at Discharge: Not Applicable/Non-Smoker Total Time Total Time Spent: Less Than 30 Minutes Discharge Data Lab Results 12/02/20 12/02/20 12/02/20 12:48 12:48 12:48 WBC RBC Hgb Hct MCV MCH MCHC RDW Std Deviation RDW Coeff of Ashley Plt Count MPV Immature Gran % (Auto) Neut % (Auto) Lymph % (Auto) Ada % (Auto) Eos % (Auto) Baso % (Auto) Neut # (Auto) Lymph # (Auto) Ada # (Auto) Eos # (Auto) Baso # (Auto) Immature Gran # (Auto) Sodium Potassium Chloride Carbon Dioxide Anion Gap BUN Creatinine Est Cr Clr Drug Dosing Est GFR ( Amer) Est GFR (Non-Af Amer) BUN/Creatinine Ratio Glucose Calcium Total Bilirubin AST ALT Alkaline Phosphatase Total Protein Albumin Globulin Albumin/Globulin Ratio TSH Urine Color Yellow Urine Appearance Clear Urine pH 6.0 Ur Specific [place] 1.009 Urine Protein Negative Urine Glucose (UA) Negative Urine Ketones Trace H Urine Blood Trace H Urine Nitrite Negative Urine Bilirubin Negative Urine Urobilinogen Negative Ur Leukocyte Esterase Trace H Urine WBC (Auto) 10-30 H Urine RBC (Auto) 0-4 U Hyaline Cast (Auto) 1-5 U Epithel Cells (Auto) >30 H Urine Bacteria (Auto) Negative POC Ur Test NEG Salicylates Urine Opiates Screen Neg Ur Methadone, Qual Neg Acetaminophen Urine Barbiturates Neg Ur Phencyclidine (PCP) Neg U Amphetamin/Meth Scrn Neg MDMA (Ecstasy) Screen Neg U Benzodiazepines Scrn Neg Ur Cocaine Metabolite Neg U Marijuana (THC) Screen Pos H U Marijuana THC Carboxy Drug Screen Comment Ethyl Alcohol mg/dL COVID-19 Eval Order SARS-CoV-2 (PCR) 12/02/20 12/02/20 12/02/20 12:48 13:03 13:03 WBC 5.98 RBC 4.96 Hgb 13.1 Hct 40.3 MCV 81.3 MCH 26.4 MCHC 32.5 RDW Std Deviation 46.6 H RDW Coeff of Ashley 15.8 H Plt Count 180 MPV 10.6 H Immature Gran % (Auto) 0.2 Neut % (Auto) 72.4 Lymph % (Auto) 19.9 Ada % (Auto) 6.4 Eos % (Auto) 0.8 Baso % (Auto) 0.3 Neut # (Auto) 4.33 Lymph # (Auto) 1.19 L Ada # (Auto) 0.38 Eos # (Auto) 0.05 Baso # (Auto) 0.02 Immature Gran # (Auto) 0.01 Sodium 142 Potassium 4.0 Chloride 112 H Carbon Dioxide 23 Anion Gap 7.0 BUN 11 Creatinine 0.61 Est Cr Clr Drug Dosing 113.5 Est GFR ( Amer) 143.0 Est GFR (Non-Af Amer) 123.4 BUN/Creatinine Ratio 18.7 Glucose 86 Calcium 9.9 Total Bilirubin 0.4 AST 17 ALT 20 Alkaline Phosphatase 44 L Total Protein 7.1 Albumin 4.1 Globulin 3.0 Albumin/Globulin Ratio 1.4 TSH 1.840 Urine Color Urine Appearance Urine pH Ur Specific [place] Urine Protein Urine Glucose (UA) Urine Ketones Urine Blood Urine Nitrite Urine Bilirubin Urine Urobilinogen Ur Leukocyte Esterase Urine WBC (Auto) Urine RBC (Auto) U Hyaline Cast (Auto) U Epithel Cells (Auto) Urine Bacteria (Auto) POC Ur Test Salicylates Urine Opiates Screen Ur Methadone, Qual Acetaminophen Urine Barbiturates Ur Phencyclidine (PCP) U Amphetamin/Meth Scrn MDMA (Ecstasy) Screen U Benzodiazepines Scrn Ur Cocaine Metabolite U Marijuana (THC) Screen U Marijuana THC Carboxy 117 H Drug Screen Comment SEE NOTE Ethyl Alcohol mg/dL COVID-19 Eval Order SARS-CoV-2 (PCR) 12/02/20 12/02/20 12/02/20 13:03 13:03 13:46 WBC RBC Hgb Hct MCV MCH MCHC RDW Std Deviation RDW Coeff of Ashley Plt Count MPV Immature Gran % (Auto) Neut % (Auto) Lymph % (Auto) Ada % (Auto) Eos % (Auto) Baso % (Auto) Neut # (Auto) Lymph # (Auto) Ada # (Auto) Eos # (Auto) Baso # (Auto) Immature Gran # (Auto) Sodium Potassium Chloride Carbon Dioxide Anion Gap BUN Creatinine Est Cr Clr Drug Dosing Est GFR ( Amer) Est GFR (Non-Af Amer) BUN/Creatinine Ratio Glucose Calcium Total Bilirubin AST ALT Alkaline Phosphatase Total Protein Albumin Globulin Albumin/Globulin Ratio TSH Urine Color Urine Appearance Urine pH Ur Specific [place] Urine Protein Urine Glucose (UA) Urine Ketones Urine Blood Urine Nitrite Urine Bilirubin Urine Urobilinogen Ur Leukocyte Esterase Urine WBC (Auto) Urine RBC (Auto) U Hyaline Cast (Auto) U Epithel Cells (Auto) Urine Bacteria (Auto) POC Ur Test Salicylates < 1.7 L Urine Opiates Screen Ur Methadone, Qual Acetaminophen < 2 L Urine Barbiturates Ur Phencyclidine (PCP) U Amphetamin/Meth Scrn MDMA (Ecstasy) Screen U Benzodiazepines Scrn Ur Cocaine Metabolite U Marijuana (THC) Screen U Marijuana THC Carboxy Drug Screen Comment Ethyl Alcohol mg/dL < 3.0 COVID-19 Eval Order Covid19 at [facility] SARS-CoV-2 (PCR) 12/02/20 12/02/20 13:46 13:49 WBC RBC Hgb Hct MCV MCH MCHC RDW Std Deviation RDW Coeff of Ashley Plt Count MPV Immature Gran % (Auto) Neut % (Auto) Lymph % (Auto) Ada % (Auto) Eos % (Auto) Baso % (Auto) Neut # (Auto) Lymph # (Auto) Ada # (Auto) Eos # (Auto) Baso # (Auto) Immature Gran # (Auto) Sodium Potassium Chloride Carbon Dioxide Anion Gap BUN Creatinine Est Cr Clr Drug Dosing Est GFR ( Amer) Est GFR (Non-Af Amer) BUN/Creatinine Ratio Glucose Calcium Total Bilirubin AST ALT Alkaline Phosphatase Total Protein Albumin Globulin Albumin/Globulin Ratio TSH Urine Color Urine Appearance Urine pH Ur Specific [place] Urine Protein Urine Glucose (UA) Urine Ketones Urine Blood Urine Nitrite Urine Bilirubin Urine Urobilinogen Ur Leukocyte Esterase Urine WBC (Auto) Urine RBC (Auto) U Hyaline Cast (Auto) U Epithel Cells (Auto) Urine Bacteria (Auto) POC Ur Test Salicylates Urine Opiates Screen Ur Methadone, Qual Acetaminophen Urine Barbiturates Ur Phencyclidine (PCP) U Amphetamin/Meth Scrn MDMA (Ecstasy) Screen U Benzodiazepines Scrn Ur Cocaine Metabolite U Marijuana (THC) Screen U Marijuana THC Carboxy Drug Screen Comment Ethyl Alcohol mg/dL COVID-19 Eval Order Not Reportable SARS-CoV-2 (PCR) NEGATIVE Hospital Course (1) Major depressive disorder with current active episode: The patient was admitted to the [facility] ([facility] mental health unit) on q15 min checks (behavioral with suicide precautions) for safety. The patient will participate in group, recreational, and milieu therapies and will be offered additional individual and family sessions as clinically appropriate. At this time MDD is leading diagnosis. Lens Gauger spoke extensively with patient about her past symptoms and does not believe bipolar to be accurate at this time. 12/07/20 -please see date of discharge assessment below. Patient continues to improve thought process remains improved patient denies suicidal ideation homicidal ideation. 12/06/20- Family meeting went well, denies side effects from increased lexapro - will monitor affect given past suicidal houghts with intent - patient optimistic about discharge tomorrow 12/05/2020-- will increase dose of Lexapro 20mg 12/04/2020atient took first dose of Lexapro without incident. We will continue on 10 mg p.o. every morning for now. 12/03/2020 patient will be started on Lexapro 10 mg p.o. every morning (2) Marijuana use: The patient's use history suggests problematic substance use. Brief intervention was offered and accepted. Intervention was greater than 5 min in length and included assessing readiness to quit, advice on how to reduce or abstain, and to set a specific goal for this hospitalization. wheel worker will also assist in anticipating barriers to sobriety and in problem-solving for solutions to those problems while arranging for referral to appropriate treatment. The patient is in precontemplation stage with regards to transtheoretical model of change. The patient is advised to decrease consumption due to depressant effects and risk of interaction with prescription medications. The patient agreed to consider decreasing use and will be provided with recovery materials to continue to educate self on how to cope with their condition without abusing substances. Mental Health & Subst Abuse Tx Psychiatrist Name of Psychiatrist: [place] Danielle Shelby Chapin Psychiatrist's Date of Appointment with Psychiatrist: 12/29/20 Time of Appointment with Psychiatrist: 10:40 a.m. Psychiatric Appointment Comment: [address] [place] [address] Psychiatrist Release of Information: Obtained, Reviewed and Signed Therapist Name of Therapist: [place] Danielle Kamron Campa Therapist's Date of Therapist Appointment: 12/17/20 Time of Therapist Appointment: 2:00 p.m. Therapy Appointment Comment: [address] [place] [address] Therapist Release of Information: Obtained, Reviewed and Signed Land Agent Name of Land Agent: ERASTO Dewey Phone Number for Land Agent: [phone] Date of Appointment with Land Agent: 12/09/20 Time of Appointment with Land Agent: 1:00 p.m. Case Management Appointment Comment: [address] [place] [address] Land Agent Release of Information: Obtained, Reviewed and Signed Post Discharge Appointments Primary Care Physician Name Of Family Doctor: Lavell Singer Primary Care Date of Appointment with PCP: 12/12/20 Time of Appointment with PCP: 9:45 a.m. Provider Appointment Comment: [address] , [place] [address] Primary Care Release of Information: Obtained, Reviewed and Signed Smoking Cessation Counseling Tobacco Cessation Medication Prescribed at Discharge: Not Applicable/Non-Smoker Contact Information Discharge Discharge Address: [address] [place] [id number] Discharge Plan Discharge Items Patient Disposition: Home - Self-Care Reason For Visit: BIPOLAR Discharge Diagnosis: Bipolar Disorder Unspecified Activity: Resume your previous activity Non-emergency contact: Primary Care Provider Call non-emergency contact if: you have any medication questions and your symptoms worsen Follow-up/Referrals: Beulah Singer, [Primary Care Provider] - Diet: Regular Addtl Attending Provider Instructions: SPECIAL CARE INSTRUCTIONS: 1. Follow through with your scheduled aftercare appointments. If unable to keep an appointment, please call to reschedule. 2. Take your medication only as prescribed. Medication should not be changed or stopped without the approval of your doctor. In the event of worsening symptoms or concerns about side effects, contact your doctor immediately. 3. Utilize new healthy coping skills, anger management skills, and stress management skills learned during your hospitalization. Journal feelings and process them with a support person. Identify stressors or situations that may result in relapse, deterioration or inappropriate behaviors and develop a plan to deal with those issues. 4. If your coping skills are ineffective and you are in crisis, contact your outpatient providers for direction. If unable to reach your providers, please call the [facility] CRISIS LINE AT , go to the [facility] walk-in center at [address], [address], [place], or go to the closest Emergency Room. 5. Avoid alcohol and un-prescribed drugs. 6. You have been provided with the Mental Health Advance Directives Pamphlet for your review. AFTERCARE APPOINTMENTS: * Please call your insurance company prior to your scheduled appointment to confirm your aftercare providers are covered. Take your insurance information to your appointments. WHO TO CALL AND WHEN: Medical Emergencies: For questions or emergencies related to your hospital stay, please contact the Inpatient Behavioral Health Unit at [phone]. A patient resource specialist is on-call 24/01 for the Behavioral Health Unit for emergencies At any time you feel your situation is an emergency, you may also call 911 immediately. Stand-Alone Forms: My [facility] [email or web address], Smoking Cessation Medications and DC Order Prescriptions: New escitalopram oxalate 20 mg Tablet 20 mg PO QAM Qty: 30 RF: 0 Continued levothyroxine 75 mcg capsule 75 mcg PO DAILY RF: 0 fludrocortisone 0.1 mg tablet 0.1 mg PO DAILY RF: 0 tranexamic acid 650 mg tablet See Rx Instructions .ROUTE .COMPLEX RF: 0 cholecalciferol (vitamin D3) [Vitamin D3] 25 mcg (1,000 unit) Tablet 25 mcg PO HS RF: 0 turmeric-turmeric ext-pepper 500-3 mg Capsule 1 cap PO HS RF: 0 Super Lion's Marco 1 cap PO HS RF: 0 Discontinued dextroamphetamine-amphetamine [Adderall] 5 mg Tablet 5 mg PO DAILY PRN (Reason: focus) RF: 0 5-HTP 100 mg capsule 4 cap PO HS RF: 0 Cbd 15 mg capsule 1 cap PO HS RF: 0 Discharge Orders: Discharge Order (Routine); Ordered 12/07/20 Ordered By: Ania Pacheco Admission Data Admit Date/Time: 12/03/20 09:52 Attending Provider: Brannon Woods Admit Provider: Brannon Woods Primary Care Provider: Beulah Singer Other Interventions: Discharge Summary Assessment (RN) Last Done: 12/07/20 09:55 PSY Interdisciplinary Discharge Planning Last Done: 12/07/20 09:57 Coding Level of Care Code 19517 D/C day mgmt 30 min or < Diagnoses Major depressive disorder with current active episode F32.9 Marijuana use F12.90
== END 2020-12-07 10:40 | disposition home or self-care (01) | DRG 885 ==
LOC: ED 11:59 → 3S 12-03 09:52